=== PATIENT | male | born 1995 | race Caucasian/White ===

== ENCOUNTER 2024-08-14 20:00 | Emergency (ER) | payer OTHER, SELFPAY ==
[2024-08-14 20:02] VITALS: BP 161/102
[2024-08-14 20:30] LABS: % Basophils 0.4 % (0-2); % Eosinophils 0.3 % (0-6); % Immature Granulocytes 0.2 % (0-0.5); % Lymphocytes 17.5 % (20.5-51.1); % Monocytes 10.6 % (1.7-9.3); Absolute Lymphocytes 1.6 10^3/uL (1.2-3.4); Absolute Neutrophils 6.4 10^3/uL (1.4-6.5); Hematocrit 42.9 % (39.0-52.0); Hemoglobin 15.5 g/dL (13.0-18.0); Mean Corp Hgb Conc. 36.1 g/dL (33.0-37.0); Mean Corpuscular Hgb 29.1 pg (27.0-31.0); Mean Corpuscular Volume 80.5 fL (80.0-94.0); Mean Platelet Volume 8.7 fL (7.4-10.4); Nucleated Red Blood Cells % 0 % (-); Platelet Count 315 10^3/uL (130-400); Red Blood Cell Count 5.33 10^6/uL (4.70-6.10); Red Cell Dist. Width 11.9 % (11.5-14.5); White Blood Cell Count 9.1 10^3/uL (4.8-10.8)
[2024-08-14 20:42] LABS: Amphetamines Negative (Negative); Barbiturates Negative (Negative); Benzodiazepines Negative (Negative); Buprenorphine Negative (Negative); Cocaine Negative (Negative); Marijuana Negative (Negative); Methadone Negative (Negative); Methamphetamines Negative (Negative); Opiates Negative (Negative); Phencyclidine Negative (Negative); Tricyclic Antidepressants Negative (Negative)
[2024-08-14 20:47] LABS: Blood Urea Nitrogen 10 mg/dl (9-20); Calcium 10.3 mg/dl (8.4-10.2); Carbon Dioxide 24 mmol/L (22-30); Chloride 98 mmol/L (98-107); Glucose 119 mg/dl (70-99); Potassium 4.6 mmol/L (3.5-5.1); Sodium 140 mmol/L (135-145); eGFR > 60.00
[2024-08-14 20:48] LABS: Alcohol None Detected
--- NOTE | 2024-08-14 20:52 | EDRN ---
pt arrives to 36 with mother,brother and sister. Pt has been acting differently over the past few days. Showing signs of severe paranoia and flat affect.
Pt talks freely with this RN with sister at bedside. Pt states over the past few days he has began realizing that the police have been following him everywhere he goes. He has been questioning his family if they are 'with them' Or 'who is asking
you' to ask him things. Pt states he was suicidal earlier today with a plan but that he is not at this moment in time. pt contracts for safety while he is in this ER.
Pt states he has sometimes smoked marijuana but hasn't a lot recently and everything he gets is from a dispensary. Pt verbalizes no mental health history and sister had agreed this is all new within the past few days.
Pt is has a very calm demeanor and flat affect. Pt cooperative and wanting to get help. Pt states he hasn't felt like his normal self in the past few days.
According to sister, pts aunt on mothers side has some mental health history and pts father who no one is in contact with had undiagnosed mental health issues.
--- NOTE | 2024-08-14 22:38 | ED.GENMED ---
History of Present Illness
<Jin Dodd MD - Last Filed: 08/14/24 23:17>
General
Chief Complaint: Crisis Evaluation
Source: patient and family (Sister and mother)
Exam Limitations: none
Time Seen by Provider: 08/14/24 22:06
Nursing documentation reviewed up to this point in time: agreed with
History of Present Illness
History of Present Illness:
29-year-old male with no reported chronic medical issues presents with his sister who is a psychiatric nurse and his mother; he presents for evaluation of delusions and paranoid behavior. The patient is very paranoid and is not willing to speak to
me very much. When I ask him how he is feeling he says 'I feel betrayed.' He says 'I do not know who I can trust.' When I asked him to elaborate he will not elaborate. According to his sister today he started to exhibit paranoid behavior�was
apparently concerned that the police were out to get him and that people were listening in on his cell phone conversations. He apparently also reported some thoughts of suicide�sister says that he disclosed to her that he thought about hanging
himself. He is very vague about suicidal ideation today. When asked how he is feeling physically he says that he feels fine physically. He specifically denies headache or neck pain, chest pain or abdominal pain when asked directly. He will not
provide any more information to me.
According to his sister he has no known psychiatric history. She says that he does smoke pot recreationally, buys his marijuana from a dispensary. He tells me the last time he smoked marijuana was a few days ago. He apparently drinks socially on
the weekends but not recently. He apparently did mushrooms once in the past but he says it was 'a long time ago.' He denies any other drug use. No reported trauma or recent illness according to sister. He currently lives at home with his mother
and his younger brother.
Review of Systems
<Jin Dodd MD - Last Filed: 08/14/24 23:17>
Review of Systems
All Other Systems: ROS reviewed and negative except as documented in HPI and ROS
Constitutional: Denies fever
Cardiac: Denies chest pain
ABD/GI: Denies abdominal pain
Musculoskeletal: Denies neck pain
Neurological: Denies headache
Phy Exam
<Jin Dodd MD - Last Filed: 08/14/24 23:17>
Physical Exam
Physical Exam:
Psych: Withdrawn affect, anxious mood, not clearly responding to internal stimuli but patient is clearly delusional and has poor judgment and insight
General: Awake, alert, oriented x3; nontoxic
Head: Normocephalic, atraumatic
Eyes: Conjunctiva normal, EOMI, pupils equal round reactive to light bilaterally
Throat: Airway intact, handling secretions
Neck: Trachea midline, supple without meningismus, full range of motion with no pain
Lungs: Clear to auscultation bilaterally, no wheezing, rales, rhonchi
Heart: Regular rate and rhythm, no murmurs, gallops, or rubs
Abd: Soft, non distended, nontender
Neuro: Cranial nerves intact, speech fluid, motor and sensory function intact proximally and distally in the upper and lower extremities
Skin: no rash
Extremities: Warm well-perfused with no edema
Scores
<Jin Dodd MD - Last Filed: 08/14/24 23:17>
Heart Failure Risk
Heart Failure Risk Score: Not Applicable
Heart Score for Chest Pain Patients
STEMI patient?: Not applicable
Withdrawal Assessment of Alcohol
Withdrawal Assessment Completed?: Not applicable
Course
<Jin Dodd MD - Last Filed: 08/14/24 23:17>
Orders/Labs/Results
Orders:
Orders
08/14/24 20:10
1:1 Observation - Suicide/ Violent Behavior As Directed
08/14/24 20:13
Crisis Consult Urgent
Reason for Consult: +SI
08/14/24 20:16
Urine Drug Abuse Screen Urgent
Date Specimen was Collected: 08/14/24
Time Specimen was Collected: 20:13
08/14/24 20:17
Alcohol Urgent
Basic Metabolic Panel Urgent
Complete Blood Count/With Diff Urgent
08/14/24 22:37
Diphenhydramine [Benadryl] 25 mg PO NOW STA
Lorazepam [Ativan] 1 mg PO NOW STA
08/14/24 22:43
Haloperidol [Haldol] 2 mg PO NOW STA
08/14/24 22:47
PSYCHIATRY CONSULT Urgent
Consulting Provider: Jesica Savage
Was physician already notified: No
Reason for consult: psychosis
08/14/24 22:48
Consult Notification Routine
Specialty to Notify: Psychiatry
08/15/24 00:07
Lorazepam [Ativan] 2 mg IM NOW STA
08/15/24 00:22
Haloperidol [Haldol] 5 mg PO NOW STA
08/15/24 00:26
EKG [Electrocardiogram (*1)] Urgent
Reason for Study: QTc Monitoring
08/15/24 00:27
EKG- Treatment ONCE
08/15/24 00:30
CT Head W/o Iv Contrast Urgent
Reason For Exam: change in mentation
08/15/24 00:44
Haloperidol [Haldol] 5 mg PO NOW STA
08/15/24 00:45
Lorazepam [Ativan] 2 mg PO NOW STA
08/15/24 00:47
Lorazepam [Ativan] 1 mg PO NOW STA
08/15/24 00:55
Lorazepam [Ativan] 2 mg PO NOW STA
Abnormal Lab Results
08/14/24
20:17
Absolute Monos (auto) 1.0 H 10^3/uL
(0.1-0.6)
Lymphocytes % 17.5 L %
(20.5-51.1)
Monocytes % 10.6 H %
(1.7-9.3)
Glucose 119 H mg/dl
(70-99)
Calcium 10.3 H mg/dl
(8.4-10.2)
08/14/24 20:17
08/14/24 20:17
Vital Signs
Initial and Last Documented VS:
Initial Vital Signs
Pulse Resp BP Pulse Ox
85 16 161/102 98
08/14/24 20:02 08/14/24 20:02 08/14/24 20:02 08/14/24 20:02
Last Documented Vital Signs
Temp Pulse Resp BP Pulse Ox
98.6 F 102 18 146/85 95
08/15/24 00:00 08/15/24 00:00 08/15/24 00:00 08/15/24 00:00 08/15/24 00:00
<Renetta Ramires, DO - Last Filed: 08/15/24 06:46>
Orders/Labs/Results
Orders:
Orders
08/14/24 20:10
1:1 Observation - Suicide/ Violent Behavior As Directed
08/14/24 20:13
Crisis Consult Urgent
Reason for Consult: +SI
08/14/24 20:16
Urine Drug Abuse Screen Urgent
Date Specimen was Collected: 08/14/24
Time Specimen was Collected: 20:13
08/14/24 20:17
Alcohol Urgent
Basic Metabolic Panel Urgent
Complete Blood Count/With Diff Urgent
08/14/24 22:37
Diphenhydramine [Benadryl] 25 mg PO NOW STA
Lorazepam [Ativan] 1 mg PO NOW STA
08/14/24 22:43
Haloperidol [Haldol] 2 mg PO NOW STA
08/14/24 22:47
PSYCHIATRY CONSULT Urgent
Consulting Provider: Jesica Savage
Was physician already notified: No
Reason for consult: psychosis
08/14/24 22:48
Consult Notification Routine
Specialty to Notify: Psychiatry
08/15/24 00:07
Lorazepam [Ativan] 2 mg IM NOW STA
08/15/24 00:22
Haloperidol [Haldol] 5 mg PO NOW STA
08/15/24 00:26
EKG [Electrocardiogram (*1)] Urgent
Reason for Study: QTc Monitoring
08/15/24 00:27
EKG- Treatment ONCE
08/15/24 00:30
CT Head W/o Iv Contrast Urgent
Reason For Exam: change in mentation
08/15/24 00:44
Haloperidol [Haldol] 5 mg PO NOW STA
08/15/24 00:45
Lorazepam [Ativan] 2 mg PO NOW STA
08/15/24 00:47
Lorazepam [Ativan] 1 mg PO NOW STA
08/15/24 00:55
Lorazepam [Ativan] 2 mg PO NOW STA
Abnormal Lab Results
08/14/24
20:17
Absolute Monos (auto) 1.0 H 10^3/uL
(0.1-0.6)
Lymphocytes % 17.5 L %
(20.5-51.1)
Monocytes % 10.6 H %
(1.7-9.3)
Glucose 119 H mg/dl
(70-99)
Calcium 10.3 H mg/dl
(8.4-10.2)
08/14/24 20:17
08/14/24 20:17
Vital Signs
Initial and Last Documented VS:
Initial Vital Signs
Pulse Resp BP Pulse Ox
85 16 161/102 98
08/14/24 20:02 08/14/24 20:02 08/14/24 20:02 08/14/24 20:02
Last Documented Vital Signs
Temp Pulse Resp BP Pulse Ox
98.6 F 102 18 146/85 95
08/15/24 00:00 08/15/24 00:00 08/15/24 00:00 08/15/24 00:00 08/15/24 00:00
<Jin Dodd MD - Last Filed: 08/14/24 23:17>
MDM/Problems Addressed
Differential Diagnosis Includes:
Schizophrenia, drug intoxication, traumatic head injury
MDM/Problems Addressed:
29-year-old male presents for evaluation of delusions and paranoid behavior that family noticed today. Apparently also reported some suicidal ideation with a plan to hang himself. No recent illness or trauma and physically says he is feeling well
although he is very withdrawn and paranoid. Hypertensive but otherwise normal vital signs. Physical exam as above. Given that this is new onset we will check basic medical screening labs including a CBC and a CMP, drug screen and alcohol level.
Will check CT head as well. Patient is agreeable to psychiatric treatment, crisis has already seen and assessed patient and they will work towards placement pending medical clearance. He is escalating his paranoia and agitation somewhat will dose
with p.o. meds.
<Jin Dodd MD - Last Filed: 08/14/24 23:17>
*Radiology
Radiology exam reviewed: radiology read reviewed
*Pulse Oximetry
Patient hypoxic: no
*Critical Care Note
Total Time (30-74mins, 75-104mins- exclusive of procedures): Not Applicable
Data Reviewed
Source: patient and family
<Renetta Ramires DO - Last Filed: 08/15/24 06:46>
*Radiology
Radiology exam reviewed: radiology read reviewed (CT of the head is unremarkable.)
<Jin Dodd MD - Last Filed: 08/14/24 23:17>
Patient Management
Discussion with other providers: Other (Discussed with crisis team)
ED Attending Note
<Jin Dodd MD - Last Filed: 08/14/24 23:17>
-
Portions of this chart may have been created with voice recognition software.� Occasional wrong word or��sound alike� substitutions may have occurred due to the inherent limitations of voice recognition software.
Discharge Plan
Departure
Discharge Problem:
acute paranoid schizophrenia
Prescriptions:
No Action
No Current Medications
0
Referrals:
NONE,* [Family Provider] -
Interventions
Interventions:
*Risk Screen - Suicide Last Done: 08/14/24 20:02
*General Assessment Last Done: 08/15/24 00:02
*Neglect/Abuse Screening Last Done: 08/14/24 20:02
ED-Psychological Assessment Last Done: 08/14/24 20:51
Discharge Date and Time
Print Language: IVORIAN
--- NOTE | 2024-08-14 22:41 | EDRN ---
Long discussion between pt, fam, crisis, and doctor. Pt became obsessed with the registration paperwork and then got a little antsy.
Talked pt into staying here tonight to be seen by [facility] and [facility]. Pts sister got pt to agree to take medications to help him.
[2024-08-14] MEDS: BENADRYL 25 MG PO (23:06)
[2024-08-14] MEDS: ATIVAN 1 MG PO (23:06)
[2024-08-14] MEDS: HALDOL 2 MG PO (23:06)
[2024-08-15] VITALS: BP 146/85
[2024-08-15 00:01] VITALS: BMI 29.5
[2024-08-15] MEDS: HALDOL 5 MG PO (01:02)
[2024-08-15] MEDS: ATIVAN 2 MG PO (01:02)
[2024-08-15 09:00] VITALS: BP 122/78
== END 2024-08-15 13:00 ==
LOC: EMR 20:00
PROVIDERS: Emergency Medicine; CONSULT PHYSICIAN Psychiatry & Neurology Psychiatry; EMERGENCY PHYSICIAN Emergency Medicine
DX: R45.851 Suicidal ideations (principal); F20.0 Paranoid schizophrenia; R45.1 Restlessness and agitation; F12.90 Cannabis use, unspecified, uncomplicated
CPT/HCPCS: 99285; 70450; 80048; 80306; 82077; 85025; 93005